=== PATIENT | female | born 1985 | race Caucasian/White ===

== ENCOUNTER 2019-03-24 17:25 | Outpatient (CLI) | payer MEDICAID ==
[~2019-03-24] VITALS: Ht 157.5 cm; Wt 57.7 kg
[~2019-03-24 17:25] MED LIST: PREN-93 PO
[2019-03-24 18:21] VITALS: BP 111/71; PULSE 90; Ht 157.5 cm; Wt 57.7 kg
--- NOTE | 2019-03-24 20:24 | TRIAGE ---
OB Triage Datetime Report Generated by CPN: 03/24/2019 20:24 Datetime: 03/24/2019 19:59 Stage of : OB Triage Datetime: 03/24/2019 19:49 Stage of : OB Triage Datetime: 03/24/2019 19:12 Labor Evaluation Frequency: 0 Monitor Mode: External Pattern: Normal: <= 5 Contractions in 10 Minutes Resting Tone [place]: Relaxed Heart Rate FHR Baseline Rate: 135 Monitor Mode: External US Variability: Moderate 6-25 bpm Accelerations: 10X10 Decelerations: None Category: Category I Pain Assessment Pain Scale: 0 Pain Presence: None/Denies Pain Type: N/A Pain Goal: 3 Pain Relief Measures: Comfort Measures Datetime: 03/24/2019 18:11 Stage of : OB Triage Assessment Type: Triage Maternal Assessment Level of Consciousness: Keenly Alert, Responsive DTR's/Clonus: DTRs 2+; No Clonus Headache: Denies Blurred Vision: No Respiratory Effort: Unlabored; Regular Rhythm; Equal Expansion Breath Sounds, Left: Clear and Equal Breath Sounds, Right: Clear and Equal Nausea/Vomiting: Denies RUQ Epigastric Pain: Denies Facial Edema: None Temperature Route: Axillary Fall Risk Assessment History of Falling: (0) No Secondary Diagnosis: (0) No Ambulatory Aid: (0) Bedrest/Nurse Assist IV Therapy: (0) No Gait: (0) Normal/Bedrest/Immobile Mental Status: (0) Oriented to Own Ability Fall Score: 0 Fall Risk Score Definition: No Risk: No action required Labor Evaluation Frequency: 0 Monitor Mode: External Pattern: Normal: <= 5 Contractions in 10 Minutes Resting Tone [place]: Relaxed Heart Rate FHR Baseline Rate: 145 Monitor Mode: External US Variability: Moderate 6-25 bpm Accelerations: 10X10 Decelerations: None Category: Category I Pain Assessment Pain Scale: 0 Pain Presence: None/Denies Pain Type: N/A Pain Goal: 3 Pain Relief Measures: Comfort Measures Datetime: 03/24/2019 18:10 Time of Arrival: 03/24/2019 17:18 EGA: 36.0 Arrived By: Ambulatory Arrived From: Office Chief Complaint: FROM CLINIC TO R/O IUGR, DENIES LEAKING, BLEEDING OR UC'S Movement: Present Contractions: Denies/Absent Rupture of Membranes: Denies Vaginal Bleeding: None Vaginal Discharge: Denies Recent Sexual Intercouse: Denies Abdominal Trauma: Not Applicable Patient Complaints: None Time Provider Notified: 03/24/2019 19:49 Provider Notified: usman Initial Plan: MONITOR, BPP, EFW, UMBILICAL CORD DOPPLER
--- NOTE | 2019-03-24 20:35 | PN ---
Triage Information Date/Time 03/24/19 Reason for visit: IUGR Weeks of Gestation 36w /Para Diabetes: none Hypertention: none Additional information sent from clinic to R/O IUGR Objective Vital Signs Date Temp Pulse Resp B/P (MAP) Pulse Ox O2 O2 Flow FiO2 Time Delivery Rate 03/24/19 98.1 90 111/71 18:21 (84) Heart Rate: 150's Heart Rate Comments CAT I Contractions: None Results/Medications Results 24 hrs Laboratory Tests Test 03/24/19 18:40 Urine Color YELLOW Urine Clarity CLEAR Urine pH 6.0 Urine Specific [place] 1.010 Urine Ketones NEGATIVE Urine Nitrite NEGATIVE Urine Bilirubin NEGATIVE Urine Urobilinogen NEGATIVE Urine Leukocyte Esterase TRACE A Urine Microscopic RBC 0 Urine Microscopic WBC 2 Urine Squamous Epithelial Cells FEW Urine Bacteria FEW A Urine Hemoglobin NEGATIVE Urine Glucose NEGATIVE Urine Total Protein NEGATIVE Imaging Results BPP 03/17 KRISSY 11.5 EFW 2701gm with 37w S/D ratio nl Disposition: Discharge Assessment/Plan A IUP 36w R/O IUGR P biwkly antepartum test / / KEY VINES MD Mar 24, 2019 20:35
== END 2019-03-24 20:00 | disposition home or self-care (01) ==
LOC: OBT 17:25 → L-D 17:27 → OBT 20:00
PROVIDERS: ATTEND Obstetrics & Gynecology
DX: O36.5930 Maternal care for other known or suspected poor fetal growth, third trimester, not applicable or unspecified (principal); Z3A.36 36 weeks gestation of pregnancy
CPT/HCPCS: 76815; 76818; 76820; 81001; 87086; Z7500; G0463

== ENCOUNTER 2019-03-28 09:39 | Outpatient (CLI) | payer MEDICAID ==
[~2019-03-28] VITALS: Ht 157.5 cm; Wt 58.4 kg
[2019-03-28 10:15] VITALS: Ht 157.5 cm; Wt 58.4 kg
[2019-03-28 10:16] VITALS: BP 110/61; PULSE 86; RESP 18
== END 2019-03-28 12:32 | disposition home or self-care (01) ==
LOC: OBT 09:39 → L-D 09:41 → OBT 12:32
PROVIDERS: ATTEND Obstetrics & Gynecology
DX: O36.5930 Maternal care for other known or suspected poor fetal growth, third trimester, not applicable or unspecified (principal); Z3A.36 36 weeks gestation of pregnancy
CPT/HCPCS: 76815; 76818; Z7500; G0463

== ENCOUNTER 2019-04-18 12:11 | Inpatient (IN) | payer MEDICAID, OTHER ==
[2019-04-18] MEDS ORDERED: BUTORPHANOL 2 MG INJ IV PRN (12:30)
[2019-04-18] MEDS ORDERED: LIDOCAINE 1% (MPF) 30 ML INJ INJ PRN (12:30)
[2019-04-18] MEDS ORDERED: OXYTOCIN 30 UNITS/LR 500 ML IV PRN ×2 (12:30→18:00)
[2019-04-18] MEDS ORDERED: MISOPROSTOL 200 MCG TAB PR PRN ×2 (12:30→18:00)
[2019-04-18] MEDS ORDERED: OXYTOCIN 30 UNITS/LR 500 ML IV SCH ×2 (12:30)
[2019-04-18] MEDS ORDERED: CARBOPROST 250 MCG INJ IM PRN ×2 (12:30→18:00)
[2019-04-18] MEDS ORDERED: IBUPROFEN 600 MG TAB PO PRN (12:30)
[2019-04-18] MEDS ORDERED: METHYLERGONOVINE 0.2 MG INJ IM PRN ×2 (12:30→18:00)
[2019-04-18] MEDS: LACTATED RINGER'S 1,000 ML IV SCH ×2 (13:05→20:26)
[2019-04-18] MEDS ORDERED: CLINDAMYCIN 900 MG (PMX) 50 ML IVPB SCH (18:30)
[2019-04-18] MEDS ORDERED: morphine SULFATE/PF (10 MG/10 ML) INJ ONE (19:26)
[2019-04-18] MEDS ORDERED: FENTAnyl 50 MCG/ML VIAL ONE (19:26)
[2019-04-18] MEDS ORDERED: DEXAMETHASONE 4 MG/ML 1 ML INJ ONE (19:36)
[2019-04-18] MEDS ORDERED: ONDANSETRON 4 MG INJ ONE (19:36)
[2019-04-18] MEDS ORDERED: DIPHENHYDRAMINE 50 MG INJ IV PRN (20:30)
[2019-04-18] MEDS ORDERED: HYDROmorphONE 0.5 MG/0.5 ML SYG IV PRN ×2 (20:30)
[2019-04-18] MEDS ORDERED: ONDANSETRON 4 MG INJ IV PRN (20:30)
[2019-04-18] MEDS ORDERED: ZOLPIDEM 5 MG TAB PO PRN (20:30)
[2019-04-18] MEDS ORDERED: NALOXONE (0.4 MG/ML) INJ IV PRN (20:30)
[2019-04-18 23:50] VITALS: BP 133/73; PULSE 64; RESP 20
[2019-04-19] MEDS ORDERED: MISOPROSTOL 200 MCG TAB PR PRN
[2019-04-19] MEDS ORDERED: ZOLPIDEM 5 MG TAB PO PRN
[2019-04-19] MEDS ORDERED: NACL 0.9% 3 ML SYG IV SCH
[2019-04-19] MEDS ORDERED: LANOLIN HPA 1 PKT TOP PRN
[2019-04-19] MEDS ORDERED: METHYLERGONOVINE 0.2 MG INJ IM PRN
[2019-04-19] MEDS ORDERED: SENNA/DOCUSATE NA (8.6MG/50MG) TAB PO PRN
[2019-04-19] MEDS ORDERED: OXYTOCIN 30 UNITS/LR 500 ML IV SCH
[2019-04-19] MEDS ORDERED: OXYTOCIN 30 UNITS/LR 500 ML IV PRN
[2019-04-19] MEDS ORDERED: BENZOCAINE 20% 56 ML SPRAY TOP PRN
[2019-04-19] MEDS ORDERED: WITCH HAZEL/GLYCERIN PAD PR PRN
[2019-04-19] MEDS ORDERED: CARBOPROST 250 MCG INJ IM PRN
[2019-04-19] MEDS: KETOROLAC 30 MG INJ IV PRN ×2 (00:19→15:10)
[2019-04-19 04:43] VITALS: BP 121/77; PULSE 69; RESP 20
[2019-04-19] MEDS: IBUPROFEN 600 MG TAB PO SCH ×5 (06:00→20:51)
[2019-04-19 07:50] VITALS: BP 116/68; PULSE 65; RESP 16
[2019-04-19] MEDS: SENNA/DOCUSATE NA (8.6MG/50MG) TAB PO SCH ×2 (11:03→20:51)
[2019-04-19 11:27] VITALS: BP 105/62; PULSE 60; RESP 18
[2019-04-19 15:43] VITALS: BP 104/63; PULSE 68; RESP 18
[2019-04-19 20:15] VITALS: BP 104/55; PULSE 74; RESP 18
[2019-04-20] MEDS: IBUPROFEN 600 MG TAB PO SCH ×5 (00:55→20:04)
[2019-04-20] MEDS: OXYCODONE/ASPIRIN (4.88/325) TAB PO PRN ×3 (04:08→21:18)
[2019-04-20 04:15] VITALS: BP 101/59; PULSE 70; RESP 17
[2019-04-20] MEDS: SENNA/DOCUSATE NA (8.6MG/50MG) TAB PO SCH ×2 (08:21→21:17)
[2019-04-20 08:48] VITALS: BP 113/65; PULSE 67; RESP 18
[2019-04-20] MEDS ORDERED: DIPHTH/TET/ACEL PERTUSS (ADULT) 0.5 ML VIAL IM* ONE (09:00)
[2019-04-20 15:47] VITALS: BP 106/50; PULSE 92; RESP 18
[2019-04-20 20:00] VITALS: BP 109/67; PULSE 77; RESP 16
[2019-04-21] MEDS: OXYCODONE/ASPIRIN (4.88/325) TAB PO PRN ×2 (00:39→09:52)
[2019-04-21 04:00] VITALS: BP 113/74; PULSE 78; RESP 40
[2019-04-21] MEDS: IBUPROFEN 600 MG TAB PO SCH ×2 (06:19→12:23)
[2019-04-21 08:00] VITALS: BP 124/74; PULSE 82; RESP 18
[2019-04-21] MEDS: SENNA/DOCUSATE NA (8.6MG/50MG) TAB PO SCH (09:55)
== END 2019-04-21 13:47 | disposition home or self-care (01) | DRG 788 ==
LOC: L-D 12:11 → PP1 23:46 → EDSTATUS 04-21 12:07
PROVIDERS: ADMIT Obstetrics & Gynecology; ATTEND Obstetrics & Gynecology
PROC: 4A1HXCZ Monitoring of Products of Conception, Cardiac Rate, External Approach (ICD-10-PCS; 2019-04-18)
PROC: 10D00Z1 Extraction of Products of Conception, Low, Open Approach (ICD-10-PCS; principal; 2019-04-18 19:30)
DX: O45.93 Premature separation of placenta, unspecified, third trimester (principal); O99.02 Anemia complicating childbirth; Z3A.39 39 weeks gestation of pregnancy; Z37.0 Single live birth
CPT/HCPCS: 76815; 85025; 85610; 85730; 86592; 86850; 86900; 86901; 87340; 88307; 99464; J1100; J1170; J1200; J1885; J2274; J2405; J2590; J3010; J7120